=== PATIENT | male | born 1940 | race Caucasian/White ===

== ENCOUNTER 2016-10-30 09:05 | Day surgery (SDC) | payer MEDICARE, OTHER ==
[~2016-10-30] VITALS: Ht 172.7 cm; Wt 106.6 kg
[~2016-10-30 09:05] MED LIST: 0.9% Sodium Chloride 1,000 ML IV SCH; ASPI81TA3 PO; ATEN50TA7 PO; HYDR12.55 PO; LISI10TA PO; MULT-64 PO; OMEG300C PO; Sodium Chloride LOK Flush 10 mL Syringe IV PRN; fentaNYL-PF 50 mCg/mL 2 mL Inj IVPUSH PRN
[2016-10-30 09:35] VITALS: BP 116/69; PULSE 75; RESP 16; O2SAT 95
[2016-10-30 10:29] VITALS: BP 115/68; PULSE 67; O2SAT 96
[2016-10-30 10:40] VITALS: BP 94/71; PULSE 69; O2SAT 94
[2016-10-30 10:50] VITALS: BP 106/70; PULSE 62; O2SAT 95
[2016-10-30 11:00] VITALS: BP 102/61; PULSE 64; O2SAT 95
--- NOTE | 2016-10-30 11:31 | ENDO ---
[address] [address] ENDOSCOPY PROCEDURE PATIENT: VICKY FIGUEROA : 1940 MR#: [id number] ADMIT: 10/30/2016 JOB ID: [id number] DATE OF SERVICE: 10/30/2016 PRIMARY PROVIDER: Harshal Herrmann MD. PROCEDURE: Colonoscopy (incomplete exam). INDICATIONS: A 75-year-old male with a personal history of adenomatous colon polyp, returning for surveillance. Last exam was just over five years ago. EQUIPMENT: [employer]-H180AL. SEDATION: 1. Versed 3 mg. 2. Fentanyl 75 mcg. COMPLICATIONS: None identified. BOWEL PREPARATION: Fair, adequate exam. PROCEDURE INFORMATION: After the risks and benefits were explained, written and verbal informed consent was obtained. The patient was brought into the endoscopy suite and placed into the left lateral decubitus position. Sedation was achieved using the above-stated medications with the addition of oxygen via nasal cannula. A digital rectal examination was accomplished. No significant pathology appreciated. The scope was introduced into the rectum and advanced under direct visualization to the level of the ascending colon. We had excellent one-to-one scope movement up to the hepatic flexure. After that point in the ascending colon, the scope tended to loop quite tremendously, and we were not able to overcome this in spite of the stiffening device, multiple applications of abdominal pressure, multiple patient position changes including supine and even in the prone position. We eventually aborted our attempt to finally arrive in the cecum. The scope was slowly withdrawn to carefully examine the mucosa for any defects or lesions. Multiple direct views were made through the dentate line for exclusion of pathology. The colon was decompressed. The scope removed from the patient who tolerated the procedure very well. FINDINGS: Scattered diverticula were again noted in the left colon. A very challenging navigation from beyond the hepatic flexure. I could see down towards the ileocecal valve but did not see down into the cecum and many of the folds in the ascending colon we did not see the proximal aspect thereof. Otherwise, no polyps were appreciated throughout. ENDOSCOPIC DIAGNOSES: 1. Incomplete exam. 2. Diverticulosis. RECOMMENDATIONS: Based on personal history of adenomatous colon polyp, I think it would be reasonable within the next couple of years to pursue one more surveillance colonoscopy. I would, however, recommend that this be accomplished by way of balloon assist technology down in [place] (double or single balloon endoscopy).
== END 2016-10-30 23:59 | disposition home or self-care (01) ==
LOC: END 09:05
PROVIDERS: ATTEND Internal Medicine Gastroenterology
DX: Z12.11 Encounter for screening for malignant neoplasm of colon (principal); Z86.010 Personal history of colon polyps; Z53.8 Procedure and treatment not carried out for other reasons
CPT/HCPCS: 99153; G0105; G0500; J2250; J3010; J7030